=== PATIENT | male | born 1970 | race Caucasian/White ===

== ENCOUNTER 2019-11-15 14:04 | Emergency (ER) | payer MEDICARE, MEDICAID ==
--- NOTE | 2019-11-15 15:03 | UC ---
Back Pain HPI - HPI Summary HPI Summary: Patient's a 49-year-old gentleman who presents urgent care complaining of right low back pain for the last 24 hours. Patient has not taken anything for pain pain. Pain is worse with moves. Patient denies any numbness tingling or extremity weakness. Patient denies any trauma. No rash. No fevers no chills. No dysuria, no hematuria, no penile discharge. No testicular pain. Patient has not taken any analgesic. 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 Patient states he was treated for typing and then sent to [place]. Patient's concerned that his current symptoms are related to a UTI or kidney infection. Patient states he takes medications for blood pressure and [id number]-kng-scpsarg vitamins. Patient's medications is entered in the EMR by triage nurse reviewed by me. - History of Current Complaint Chief Complaint: UCBackPain Stated Complaint: BACK PAIN Time Seen by Provider: 11/15/19 14:54 Hx Obtained From: Patient, Other: - Donna Rothman | Reference #: [id number] istop Severity Initially: Moderate Severity Currently: Moderate Pain Intensity: 4 - Allergies/Home Medications Allergies/Adverse Reactions: Allergies Allergy/AdvReac Type Severity Reaction Status Date / Time No Known Allergies Allergy Verified 11/15/19 14:49 Home Medications: Home Medications Aspirin 1 dose PO DAILY 11/15/19 [History Confirmed 11/15/19] Multivitamin [Multivitamins] 1 tab PO DAILY 11/15/19 [History Confirmed 11/15/19 ] Valsartan 1 tab PO DAILY 11/15/19 [History Confirmed 11/15/19] Vitamin For Bones 1 tab PO DAILY 11/15/19 [History Confirmed 11/15/19] PMH/Surg Hx/FS Hx/Imm Hx Previously Healthy: Yes Cardiovascular History: Hypertension - Surgical History Surgical History: Yes Surgery Procedure, Year, and Place: bilateral hip replacement, renal abscess - Family History Known Family History: Positive: Non-Contributory - Social History Occupation: Unemployed Lives: With Family Alcohol Use: Occasionally Substance Use Type: None Smoking Status (MU): Never Smoked Tobacco Review of Systems All Other Systems Reviewed And Are Negative: Yes Constitutional: Positive: Negative. Negative: Fever, Fatigue Skin: Positive: Negative Genitourinary: Negative: Dysuria, Hematuria, Frequency, Urgency Motor: Positive: Negative Musculoskeletal: Positive: Other: - right back pain Physical Exam - Summary Physical Exam Summary: Vital Signs Reviewed: Yes A+Ox3, no distress Eyes: Conjunctiva Clear, CLAIR. ENT: Hearing grossly normal TM x 2 clear, mmoist, uvula midline, no exudate, no erythema Neck: Positive: Supple Respiratory: Positive: No respiratory distress, No accessory muscle use + CTA throughout no w/r Cardiovascular: RRR nl s1, s2 no m/r CBT <2 sec abd soft + BS nt/nd no guarding, no distension, no CVA, no rash Musculoskeletal Exam: No pain spinous process c/t/l/s Full AROM + mild paraspinal pain right lower thoracic Neurological: Positive: Alert, + sensation throughout Psychological: Positive: Normal Response To examiner Skin: Positive: no rash, no ecchymosis Triage Information Reviewed: Yes Vital Signs: Initial Vital Signs Temp 98.7 F 11/15/19 14:31 Pulse 67 11/15/19 14:31 Resp 18 11/15/19 14:31 BP 152/97 11/15/19 14:31 Pulse Ox 100 11/15/19 14:31 Diagnostics - Radiology No standard instances Radiology Interpretation Completed By: Radiologist - Patient Name: KIM MTZ Medical Record#: [id number] Ordering Physician: Donna Rothman MD Acct.#: [id number] : 1970 Age: 49 Sex: M Location: [facility] [place] Exam Date: 11/15/19 1534 ADM Status: [facility] ER Order Information: RENAL COMPLETE Accession Number: [id number] CPT : 44176 INDICATION: Right back pain history of renal abscess. COMPARISON: There are no prior studies available for comparison. TECHNIQUE: Multiple real-time images of the kidneys were obtained. FINDINGS: The kidneys are normal in size shape and echogenicity. The right kidney measured 10.2 x 5.3 x 6.3 cm and the left kidney measured 11.0 x 6.0 x 4.8 cm. No significant focal abnormality or hydronephrosis is seen. Note is made of a slightly complex cyst present in the posterior aspect of the right hepatic lobe measuring 1.9 x 1.3 x 1.8 cm. IMPRESSION: 1. NO EVIDENCE FOR HYDRONEPHROSIS OR FOCAL RENAL ABNORMALITY. 2. SLIGHTLY COMPLEX HEPATIC CYST. RECOMMEND A FOLLOW-UP HEPATIC ULTRASOUND IN 6 MONTHS TIME. < Electronically signed by León Bishop MD in OV> 11/15/19 1604 Dictated By: León Bishop MD Dictated Date/Time: 11/15/19 1601 Transcribed Date/Time: 160 Copy to: CC:Archie Laguna MD; Donna Rothman MD Imaging - [facility] Imaging - [place] [facility] [address] [place] [id number] [address] [address] ph ([phone]) ph ([phone]) ph ([phone]) This report is only to be considered final once signed by the Provider(s) as displayed in the "<Electronically Signed by >" field (s). Absence of a signature indicates the report is in a draft status and still needs to be finalized. In the event this document was created by someone other than the signing Provider, the individual initiating the document will be listed in the "Entered by:" or "Dictated by:" [email or web address]. 1 of 1 Re-Evaluation - Re-Evaluation First Eval Re-Evaluation Time: 16:13 Change: Improved - reviewed imaging study with pt will follow-up with PCP regarding hepatic cyst states APAP "helped a lot" will discharge - return precautions discussed Back Pain Course/Dx - Course Course Of Treatment: Patient presents urgent care with 5 hours of right back pain. Patient has not taken any for pain. Patient denies any injury. Patient without any other symptoms. No analgesic taken. Patient has a history of renal abscess that he was concerned enough that he came. Patient has no urinary symptoms. On exam vital signs are stable. Patient well-appearing. Patient does have mild pain on the right paraspinal distal thoracic area. We'll check a urine and ultrasound. Tylenol. We'll reassess. Patient comfortable with plan. BP elevated - history of diagnosis - related to today's visit - Differential Dx/Diagnosis Provider Diagnosis: Back pain Discharge ED - Sign-Out/Discharge Documenting (check all that apply): Patient Departure All imaging exams completed and their final reports reviewed: Yes - Discharge Plan Condition: Stable Disposition: HOME Patient Education Materials: Back Pain (ED) Referrals: Archie Laguna MD [Primary Care Provider] - Additional Instructions: - Okay to alternate ibuprofen (Advil, Motrin) and acetaminophen (Tylenol) every 3 hours for pain. Take with food. Do NOT take for more than 4-5 days - Apply warm heat to your back - once your muscles are warm, slow gentle stretching exercises are important - As discussed, your urine and your kidney ultrasound are non concerning. Your ultrasound does show a cyst on your liver. There are no previous imaging studies at this facility to compare today - it is recommended you discuss with your primary care provider and likely get re-imaged in 4-6 months If you develop increased pain, weakness or tingling in your legs, fever, vomiting or any other concerns it is recommended you go to the emergency department or contract your doctor for further evaluation and treatment - Billing Disposition and Condition Condition: STABLE Disposition: Home
[2019-11-15] MEDS ORDERED: Acetaminophen TAB* 325 MG PO ONE (15:22)
== END 2019-11-15 16:26 | disposition home or self-care (01) ==
LOC: UCEAST 14:04
DX: M54.6 Pain in thoracic spine (principal); I10 Essential (primary) hypertension; K76.89 Other specified diseases of liver
CPT/HCPCS: 76775; 81003; 99201; A9270-GY; G0463

== ENCOUNTER 2019-12-22 20:33 | Emergency (ER) | payer MEDICARE, MEDICAID ==
--- OUTSIDE RECORDS SUMMARY | 2019-12-22 20:40 | XMS REPORT | Continuity of Care Document ---
:1970 Author Organization 0001 - [facility] Address [address] [place] [address] Phone Care Team Providers Name Role Phone KIRT TELLO MD Unavailable Unavailable Allergies, Adverse Reactions, Alerts Substance Reaction Status TRAMADOL HCL Itching (mild to moderate) Active Medications Medication Instructions Dosage Effective Status Comments Dates (start - stop) cromolyn 4 % eye instill 1 - 2 drop 1-2 drop - Active drops by Ophthalmic route 4 times every day into affected eye(s) aspirin 81 mg take 1 tablet by 81 MG - Active tablet,delayed ORAL route every release day Diovan 160 mg take 1 tablet by 160 MG - Active Replacing tablet oral route every lisnopril day ciclopirox 0.77 % apply by topical 0.00 - Active topical cream route 2 times every day to the affected and surrounding areas of skin in the morning and evening Voltaren 1 % apply 4 Grams by 4 Grams - Active topical gel Topical route every 6 hours ibuprofen 400 mg take 1 by Oral 1 - Active tablet route every 4 hours as needed for pain nitroglycerin 0.4 place 1 tablet by 0.4 MG - Active mg sublingual sublingual route tablet once at 1st sign of attack; may repeat every 5 minutes up to 3 tabs; if norelief seek medical help loratadine 10 mg take 1 tablet by 10 MG - Active tablet oral route every day Multivitamin 50 take 1 tablet by - Active Plus tablet oral route every day Move Free Joint - Active Health 750 mg-100 mg-1.65 mg-108 mg tablet cromolyn 4 % eye instill 1 - 2 drop 1-2 drop - No Longer drops by Ophthalmic Active route 4 times every day into affected eye(s) Problems Condition Effective Dates (start - stop) Clinical Status Essential (primary) hypertension Elevated liver enzymes Chronic right shoulder pain Other chronic pain History of hepatitis History of fatty infiltration of liver Tinea pedis of right foot Other disturbances of skin sensation - Fasciculation - Fasciculation Dysesthesia Nose pain Viral URI Viral respiratory infection Other viral agents as the cause of diseases classified elsewhere Status post total replacement of both hips Tinea pedis of right foot Digital mucinous cyst of finger of right hand Chronic left shoulder pain Other chronic pain Digital mucinous cyst of finger of right hand 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 Chronic left shoulder pain Other chronic pain Neck pain Lesion of mandible Urinary frequency Urinary frequency Angular cheilitis Flu syndrome Cntct w and expsr to environ tobacco - smoke (acute) (chronic) Acute right ankle pain Acute non-recurrent sinusitis, unspecified location Cntct w and expsr to environ tobacco - smoke (acute) (chronic) Acute non-recurrent sinusitis, unspecified location Cntct w and expsr to environ tobacco - smoke (acute) (chronic) Encounter for screening for other - disorder Allergic conjunctivitis of both eyes Chronic left shoulder pain Other chronic pain Essential (primary) hypertension Chest pain, unspecified Cntct w and expsr to environ tobacco - smoke (acute) (chronic) Essential (primary) hypertension Precordial pain Cntct w and expsr to environ tobacco - smoke (acute) (chronic) Laceration of oral cavity, subsequent encounter Essential (primary) hypertension Cntct w and expsr to environ tobacco - smoke (acute) (chronic) Abrasion of right eye, initial encounter Viral respiratory infection Other viral agents as the cause of diseases classified elsewhere Urinary frequency Acromioclavicular joint arthritis Pain in joint of left shoulder Essential (primary) hypertension Viral URI Other viral agents as the cause of diseases classified elsewhere Viral URI Other viral agents as the cause of diseases classified elsewhere Abrasion of gum, initial encounter History of hepatitis C History of hepatitis C Family history of hemophilia Nonspec elev of levels of transamns & - lactic acid dehydrgnse Genetic counseling Elevated transaminase level Flu syndrome Other fatigue Right hip pain Stress due to family tension Essential (primary) hypertension Encounter for immunization - Acute sinusitis, unspecified Essential (primary) hypertension Essential (primary) hypertension Pain in unspecified ankle and joints of unspecified foot Essential (primary) hypertension Other abnormal glucose Hypertension, Benign - Abnormal Liver Enzymes - ABNORMAL GLUCOSE NEC - Impaired vision Hypertension, Benign Elevated blood sugar Elevated ALT level Hyperglycemia, unspecified Nonspecific elevation of levels of transaminase and lactic acid dehydrogenase [LDH] Essential (primary) hypertension Unspecified visual loss Hypertension, Benign Elevated Blood Sugar Foot Pain Foot Pain Hypertension, Benign Hip pain, left Hypertension, Benign Heel pain Elevated blood pressure Impaired vision Vaccine against viral hepatitis - Epicondylitis Impaired vision Family history of glaucoma History of hepatitis Hepatitis C, chronic viral, w/o hepatic coma Priapism Osteoarthritis Status post hip prosthesis Dysuria Status post right hip replacement Abrasion of right thigh Acute upper respiratory infection Osteoarthrosis, local, prim, pelvis/thigh Acute sinusitis Bronchitis with airway obstruction Elevated blood pressure Osteoarthrosis, local, prim, lower leg Systemic viral illness Osteoarthrosis, local, prim, lower leg Osteoarthrosis, local, prim, pelvis/thigh Osteoarthritis of both hips Osteoarthrosis NOS, pelvis/thigh Osteoarthrosis, local, prim, lower leg Pain in joint, shoulder Osteoarthrosis, local, prim, pelvis/thigh Osteoarthrosis, local, prim, lower leg Osteoarthrosis, local, prim, - pelvis/thigh Osteoarthrosis, local, prim, lower leg - Osteoarthrosis, local, prim, - pelvis/thigh Osteoarthrosis, local, prim, lower leg - Osteoarthritis of both hips Knee pain Osteoarthrosis NOS, pelvis/thigh - Pain in joint, lower leg - Osteoarthrosis NOS, pelvis/thigh - Pain in joint, lower leg - Contact dermatitis Osteoarthritis Dermatitis NOS - Osteoarthrosis NOS, unspecified site - Upper Respiratory Infection, Acute - Upper Respiratory Infection, Acute - Elevated blood pressure Pain in joint, pelvis/thigh - Pain in joint, lower leg - Abnormal findings, elevated BP w/o HTN - Shoulder pain Pain in joint, pelvis/thigh - Pain in joint, shoulder - Pain in joint, pelvis/thigh - Pain in joint, shoulder - Sinusitis, Acute - Sinusitis, Acute - Arthritis Arthropathy - Arthropathy - Impetigo Elevated blood pressure Impetigo - Abnormal findings, elevated BP w/o HTN - Impetigo - Abnormal findings, elevated BP w/o HTN - Reaction, adjustment NOS Upper Respiratory Infection, Acute Reaction, adjustment NOS - Upper Respiratory Infection, Acute - Reaction, adjustment NOS - Upper Respiratory Infection, Acute - Low back pain Pain in joint, multiple sites Lumbago - Pain in joint, multiple sites - Lumbago - Pain in joint, multiple sites - Chronic knee pain Knee pain, right Multiple joint pain Generalized Pain - Pain in joint, lower leg - Pain in joint, multiple sites - Pain in joint, lower leg - Pain in joint, multiple sites - Pharyngitis, Acute Rhinitis, allergic NOS Excessive cerumen in ear canal Pharyngitis, Acute - Rhinitis, allergic NOS - Impacted cerumen - Pharyngitis, Acute - Rhinitis, allergic NOS - Impacted cerumen - Upper Respiratory Infection, Acute - Multiple joint pain Hip pain Pain in joint, multiple sites - Pain in joint, pelvis/thigh - Low back strain Pain in joint, shoulder Lumbar Sprain Or Strain - Pain in joint, shoulder - Shoulder pain Pain in joint, shoulder - Pain in joint, shoulder - Shoulder pain Shoulder pain, left Pain in joint, shoulder - Pain in joint, shoulder - Left shoulder strain Mixed Hyperlipidemia Sprain/strain, shoulder/arm NOS - Mixed Hyperlipidemia - Sprain/strain, shoulder/arm NOS - Mixed Hyperlipidemia - Sinusitis, Acute Hypertension, Benign Fatigue / Malaise Upper Respiratory Infection, Acute Sprain/strain, hip/thigh NEC Sinusitis, Acute Hepatitis C, chronic viral, w/o hepatic coma Upper Respiratory Infection, Acute Acute Upper Respiratory Infection, Acute Acute Cyst, sebaceous Acute Foreign body, ear Acute Osteoarthrosis, local, prim, - Chronic pelvis/thigh Osteoarthrosis, local, prim, lower leg - Chronic Pain in joint, pelvis/thigh Chronic Pain in joint, lower leg Chronic Hip pain, bilateral Chronic Sinusitis, Acute Chronic Reaction, prolonged depressive Chronic Retardation, mental, mild Chronic Legal circumstances Chronic Sinusitis, acute NOS Improved Osteoarthrosis, local, prim, Worse pelvis/thigh Osteoarthritis of both hips Worse Procedures Procedure Date Procedure Unknown Results Test Name Date and Time Measure Units Reference Range Abnormal Flag Status Comments Unknown Encounters Encounter Practice Location Reason(s) Diagnoses Date Provider Providers Description For Visit Copied on Encounter 2019 - [facility] Primary [employer] [facility] KIRT. [address] [place] [address], [address], [facility], tel: [phone] tel: [phone] 2019 - [facility] Primary [employer] [facility] KIRT. [address] [place] [address], [place], [address], [facility], tel: [phone] tel: [phone] 2019 - [facility] Primary Sep- The Online [facility] KIRT. [place] 9 [facility] [place] [address] [place] [address], [place], [place], [address], [place], tel:+ [phone] tel:[phone] 0001 - [facility] Essential (primary) [employer], [facility] hypertensionElevate KIRT. [place] d liver 9 [facility] Charly enzymesChronic [address] [facility], right shoulder [facility] painOther chronic [place], pain [place], [address], [place], tel:+ [phone] tel: [phone] 0001 - [facility] Primary [employer], [facility] KIRT. [place] 9 [facility] Charly [address] [facility], [place], [place], [address], [place], tel: [phone] tel: [phone] 0001 - [facility] History of [employer], [facility] hepatitisHistory of KIRT. [place] fatty infiltration 9 [facility] Charly of liverTinea pedis [address] [place] [address], of right foot [place], [place], [address], [place], tel: [phone] tel:+ [phone] 0001 - [facility] Primary May- [employer], [facility] KIRT. [place] 9 [facility] [address] [place] [address], [place], [place], [address], [place], tel: [phone] tel:[phone] 0001 - [facility] Primary Other disturbances May- [employer], [facility] of skin KIRT. [place] sensationFasciculat 9 [facility] Charly ion [address] [facility], [place], [place], [address], [place], tel:+ [phone] tel:[phone] 0001 - [facility] Primary FasciculationDysest May- [employer], [facility] hesia KIRT. [place] 9 S PC Charly [address] [place] [address], [place], [place], [address], [place], tel:+ [phone] tel: [phone] 0001 - S Primary Fe- [facility], [facility] KIRT. [place] 9 S PC Charly [address] [place] [address], [place], [place], [address], [place], tel: [phone] tel: [phone] 0001 - S Primary Nose painViral URI [facility], [facility] KIRT. [place] 9 S PC Charly [address] [place] [address], [place], [place], [address], [place], tel: [phone] tel: [phone] 0001 - S Primary Viral respiratory [facility], [facility] infectionOther KIRT. [place] viral agents as the 9 [facility] Charly cause of diseases [address] [place] [address], [facility] [place], post total [place], [address], [place] replacement of both [place], tel: hips [phone] tel: [phone] 0001 - S Primary Tinea pedis of [facility], [facility] right foot KIRT. [place] 8 S PC Charly [address] [place] [address], [place], [place], [address], [place], tel: [phone] tel: [phone] 0001 - S Primary Digital mucinous Jun- [facility], [facility] cyst of finger of KIRT. [place] right hand 8 [facility] [address] [place] [address], [place], [place], [address], [place], tel: [phone] tel: [phone] 0001 - [facility] Primary Chronic left Aug-0 SKIFF [facility], [facility] shoulder painOther 2- KIRT. [address] [place] chronic painDigital 8 [facility] mucinous cyst of [address] [place] [address], finger of right , [place], [place], [place], [address], [place], tel: [phone] tel: [phone] 0001 - [facility] Primary Borderline May-2 [employer] [facility], [facility] intellectual 6- KIRT. [address] [place] functioning 8 [facility] Charly [address] [facility], [place], [place], [address], [place], tel:[phone] tel: [phone] 0001 - [facility] Primary Borderline May-2 [employer], [facility] intellectual 3- KIRT. [address] [place] functioning 8 [facility] [address] [place] [address], [place], [place], [address], [place], tel: [phone] tel: [phone] 0001 - [facility] Primary Chronic left March-3 [employer] [facility], [facility] shoulder painOther 1- KIRT. [address] [place] chronic painNeck 8 [facility] pain [address] [place] [address], , [place], [place], [place], [address], [place], tel: [phone] tel: [phone] 0001 - [facility] Primary Lesion of Mar-0 [employer], [facility] mandibleUrinary 6 KIRT. [address] [place] frequency 8 [facility] [address] [place] [address], [place], [place], [address], [place], tel: [phone] tel:[phone] 0001 - [facility] Primary Urinary frequency Feb-2 LUIS. [facility], [facility] 7- [facility]HSP[facility] [address] [place] [address], [facility], [facility] [place], [address]. [address], [place] tel:60 tel:[phone] 0001 - [facility] Primary Angular cheilitis Dec- [employer]IFF [facility], Care [facility]nett KIRT. [address] [place] 8 [facility] [address] [place] [address], [place], [place], [address], [place], tel: [phone] tel: [phone] 0001 - [facility] Primary Flu syndromeCntct w Feb- SKIFF [facility], Care [facility] and expsr to KIRT. [address] [place] [address] environ tobacco 8 [facility] smoke (acute) [address] [place] [address], (chronic) [place], [place], [place], [address], [place], tel: [phone] tel: [phone] 0001 - [facility] Primary Acute right ankle SKIFF [facility], [facility] painAcute [facility]. [address] [place] [address] non-recurrent 8 [facility] sinusitis, [address] [place] [address], unspecified [facility] locationCntct w and [place], expsr to environ [place], [facility], [place] tobacco smoke [place], tel: (acute) (chronic) [phone] tel: [phone] 0001 - [facility] Acute non-recurrent Nov- [facility], [facility] sinusitis, KIRT. [address] [place] [address] unspecified 8 [facility] Charly locationCntct w and [address] [place] [address], expsr to environ [facility] tobacco smoke [place], (acute) [place], [facility], [place] (chronic)Encounter [place], tel: [place] for [phone]. [phone] other disorder tel: [phone] 0001 - [facility] Primary Allergic Jul- SKIFF [employer], [facility] conjunctivitis of [place] [id number] [place] [address] both eyesChronic 7 [facility] Ch[facility] left shoulder [address] [place] [address], painOther chronic [facility] pain [place], [place], [address], [place], tel: [phone] tel: [phone] 0001 - [facility] Essential (primary) Sep-1 ULISSES [facility], Cardiology hypertensionChest 2-201 DODIE. 30 [address]57 pain, 7 Charly Parks unspecifiedCntct w Street, Street, and expsr to [facility] environ [address], smoke (acute) [place] [address], [place] (chronic) [place], [place], tel: [phone] tel: [phone] 0001 - [facility] Primary Essential (primary) Aug-2 SKIFF [facility], [facility] hypertensionPrecord 5- KIRT. [place] ial painCntct w and 7 [facility]arly expsr to environ [address] [place] [address], tobacco smoke [facility] (acute) (chronic) [place], [place], [address], [place], tel: [phone] tel: [phone] 0001 - [facility] Primary Laceration of oral Jun-0 SKIFF [facility], [facility] cavity, subsequent KIRT. Goran encounterEssential 7 UHMercedes Parks (primary) [address] [facility], hypertensionCntct w [facility] and expsr to [place], environ tobacco [place], [address], [place] smoke (acute) [place], tel: (chronic) [phone] tel: [phone] 0001 - [facility] Primary Abrasion of right Feb-2 SKIFF [facility], [facility] eye, initial KIRT. Goran encounter 7 [facility] JALYN Parks [address] [facility], [place], [place], [place], [address], [place], tel: [phone] tel: [phone] 0001 - S Primary Viral respiratory Feb-0 SKIFF [facility], [facility] infectionOther KIRT. Goran viral agents as the 7 [facility] JALYN Parks cause of diseases [address] [facility], classified [facility] elsewhere [place], [place], [place], [address], [place], tel: [phone] tel: [phone] 0001 - S Primary Urinary Suresh-2 SKIFF [facility], [facility] frequencyAcromiocla 0-201 KIRT. [address] [place] vicular joint 7 [facility] JALYN Parks arthritisPain in [address] [facility], joint of left [facility] shoulder [place], [place], [place], [address], [place], tel:+ [phone] tel:+ [phone] 0001 - S Primary Essential (primary) Dec-2 SKIFF [facility], [facility] hypertension 1-201 KIRT. [address] [place] 6 [facility] [address] [place] [address], [place], [place], [address], [place], tel: [phone] tel: [phone] 0001 - S Primary Viral URIOther Nov-1 SKIFF [employer], [facility] viral agents as the 0-201 KIRT. [place] cause of diseases 6 S JALYN Parks classified [address] [place] [address], elsewhere [place], [place], [address], [place], tel: [phone] tel: [phone] 0001 - S Primary Viral URIOther Sep-2 [facility], [facility] viral agents as the 0-201 KIRT. [place] cause of diseases 6 [facility] JALYN Parks classified [address] [place] [address], elsewhere [place], [place], [address], [place], tel: [phone] tel: [phone] 0001 - S Primary Abrasion of gum, Sep-0 [employer], [facility] initial 1- KIRT. [address] [place] encounterHistory of 6 [facility] JALYN Parks hepatitis C [address] [place] [address], [place], [place], [address], [place], tel: [phone] tel:[phone] 0001 - S Primary History of Aug-2 [facility], [facility] hepatitis C 5-201 KIRT. [address] [place] 6 [facility] JALYN Parks [address] [facility], [place], [place], [address], [place], tel: [phone] tel:+ [phone] 0001 - [facility] Primary Family history of Apr- [employer], [facility] hemophilia 0- KIRT. [address] [place] 6 [facility] [address] [place] [address], [place], [address], [place], tel:+ [phone] tel: [phone] 0001 - [facility] Primary Nonspec elev of Arron-0 SKIFF [employer], [facility] levels of transamns 9- KIRT. [address] [place] & lactic acid 6 [facility] Charly dehydrgnse [address] [place] [address], [place], [address], [place], tel: [phone] tel: [phone] 0001 - S Primary Genetic March-3 SKIFF [employer], [facility] counselingElevated KIRT. [address] [place] transaminase level 6 [facility] [address] [place] [address], [place], [address], [place], tel: [phone] tel: [phone] 0001 - [facility] Primary Flu syndromeOther March- [employer], [facility] fatigue KIRT. [address] [place] 6 [facility] [address] [place] [address], [place], [address], [place], tel: [phone] tel: [phone] 0001 - S Primary Right hip [employer], [facility] painStress due to KIRT. [address] [place] family 6 [facility] Ch[facility] tensionEssential [address] [place] [address], (primary) [facility] hypertensionEncAmerican Falls, [place], er for immunization [place], [address], [facility], tel: [phone] tel:[phone] 0001 - S Primary Acute sinusitis, SKIFF [facility], [facility] unspecifiedEssentia - KIRT. [address] [place] l (primary) 6 [facility] Ch[facility] hypertension [address] [place] [address], [place], [place], [address], [place], tel: [phone] tel: [phone] 0001 - [facility] Primary Essential (primary) Sep- [employer], [facility] hypertensionPain in KIRT. [address] [place] unspecified ankle 5 [facility] Charly and joints of [address] [place] [address], unspecified foot [place], [place], [place], [address], [place], tel: [phone]. [phone] tel: [phone] 0001 - [facility] Primary Essential (primary) Oct-0 [employer], [facility] hypertensionOther KIRT. [place] abnormal glucose 5 [facility]arly [address] [place] [address], [place], [address], [place], tel: [phone] tel: [phone] 0001 - [facility] Primary Hypertension, Sep-2 LORD LUIS. [employer], [facility] BenignAbnormal [facility] 57 [place] Liver 5 [facility], [place]anks EnzymesABNORMAL [facility], [place], [address]. [address], [place] tel: tel: [phone] 0001 - [facility] Primary Impaired Sep-2 [employer], [facility] visionHypertension, KIRT. [address] [place] BenignElevated 5 [facility] Charly blood sugarElevated [address] [place] [address], ALT [facility] levelHyperglycemia, [place], unspecifiedNonspeci [place], [address], [place] fic elevation [place], [place] [phone]. [phone] transaminase and tel:+ lactic acid [phone] dehydrogenase [LDH]Essential (primary) hypertensionUnspeci fied visual loss 0001 - [facility] Primary Hypertension, Sep-1 [employer], [facility] BenignElevated KIRT. [address] [place] Blood Sugar 5 [facility] [address] [place] [address], [place], [place], [place], [address], [place], tel:+ [phone] tel: [phone] 0001 - [facility] Foot Pain Sep-1 STEVEN [facility], Podiatry 0-201 [place]. [place] 5 [address] [facility], [place], [place], [address], [place] [address]. tel: tel: [phone] 0001 - [facility] Primary Foot Aug- SKIFF [facility], [facility] PainHypertension, KIRT. [place] Benign 5 [facility] [address], [place], [address], [place], tel: [phone]. [phone] tel: [phone] 0001 - [facility] Primary Hip pain, left May- SKIFF [facility], [facility] KIRT. [place] 5 [facility] Ch[place] [address] [place] [address], [place], [address], [place], tel: [phone] tel: [phone] 0001 - [facility] Primary Hypertension, May-0 SKIFF [facility], [facility] BenignHeel pain KIRT. [place] 5 [facility] Ch[facility] [address] [place] [address], [place], [address], [place], tel: [phone] tel: [phone] 0001 - [facility] Primary Elevated blood Arron- SKIFF [facility], [facility] pressureImpaired KIRT. [place] visionVaccine 5 [facility] Shanks against viral [address] [facility], hepatitis [place], [place], [place], [address], [place], tel: [phone]. [phone] tel:+ [phone] 0001 - [facility] Primary Epicondylitis March- SKIFF [facility], Care [facility] KIRT. [place] 5 [facility] Ch[place] [address] [place] [address], [place], [place], [place], [address], [place], tel:+ [phone] tel: [phone] 2019 - [facility] Primary Impaired March- [facility], [facility] visionFamily KIRT. [place] history of glaucoma 5 [facility] Charly [address] [place] [address], [place], [address], [place], tel: [phone]. [phone] tel: [phone] 2019 - [facility] Primary History of [facility], [facility] hepatitisHepatitis KIRT. Goran C, chronic viral, 5 [facility] Charly w/o hepatic coma [address] [place] [address], [place], [address], [facility], tel: [phone]. [phone] tel: [phone] 2019 - [facility] Primary PriapismOsteoarthri [facility], [facility] tisStatus post hip KIRT. [place] prosthesis 4 [facility] Charly [address] [place] [address], [place], [address], [place], tel: [phone]. [phone] tel: [phone] 2019 - [facility] Primary Dysuria Mar-2 Gil SHAIKH Referring [facility], [facility] NURSE. . Provider: [place] 4 [place], [address], tel: [phone] 2019 - [facility] Primary Status post right Mar- [facility], [facility] hip KIRT. [place] replacementAbrasion 4 S Charly of right thigh [address] [place] [address], [place], [address], [facility], tel: [phone]. [phone] tel: [phone] 2019 - [facility] Primary Acute upper Feb- [facility] Referring S Inc, [facility] respiratory KIRT. Provider: Goran infectionOsteoarthr 4 S PC KIRT Parks osis, local, prim, [address] SKIFF, [facility] [address], pelvis/thigh St, PC [address] [facility], [place], [place], [place], [place] [address], [place] [facility], tel: [address]. [place], [address]. [id number] tel: tel: [phone] 0001 - [facility] Primary Osteoarthrosis, Suresh- SKIFF Referring [facility], [facility], prim, 0-201 KIRT. Provider: 33-57 Goran pelvis/thigh 4 [facility] PC KIRT [place] [address] [facility] SKIFF, [facility] Street, St, PC [address] [facility] [address], [place], [place], [place], [place] [address], [place] [facility], tel: [address]. [place], [address]. [id number] tel: tel: [phone] 0001 - [facility] Primary Acute Nov SKIFF Referring [facility], [facility] sinusitisBronchitis 9-201 KIRT. Provider: 33-57 Goran with airway 3 [facility] PC KIRT Parks obstructionElevated 119 [facility], [facility] Street, blood St, PC 119 [place] pressureOsteoarthro [facility], [place], [place], sis, local, prim, [place], [place] [address], [place] lower leg [facility], tel: [address]. [place], [address]. [id number] tel: tel: [phone] 0001 - [facility] Primary Systemic viral SKIFF Referring [facility], [facility] illnessOsteoarthros 0-201 KIRT. Provider: 33-57 Goran is, local, prim, 3 [facility] PC KIRT Parks lower 119 [facility], [facility] Street, legOsteoarthrosis, St, PC 119 [place] local, prim, [facility], [place], [place], pelvis/thigh [facility] [address], [place] [facility], tel: [address]. [place], [address]. [id number] tel: tel: [phone] 0001 - [facility] Primary Osteoarthritis of Sep- SKIFF Referring [facility], [facility] both hips 8-201 KIRT. Provider: 33-57 [place] 3 S PC KIRT Parks [address] [place] [address], St, [address], [place], [place], [place], [place] [address], [place], [place], tel: [address]. [place], [address]. [id number] tel: tel: [phone] 0001 - S Primary Osteoarthrosis NOS, [facility] Referring [facility], [facility] pelvis/thighOsteoar KIRT. Provider: 3357 [place] throsis, local, 3 S PC KIRT Parks prim, lower legPain [address] [place] [address], in joint, shoulder St, [address], [place], [place], [place], [place] [address], [place], [place], tel: [address]. [place], [address]. [id number] tel: tel: [phone] 0001 - S Primary Osteoarthritis of [facility], [facility] both hips KIRT. 33 [place] 3 S PC Charly [address] [place] [address], [place], [place], [place], [address], [place], tel: [phone]. [phone] tel: [phone] 0001 - S Primary Osteoarthrosis, [facility], [facility] local, prim, KIRT. 33 [place] pelvis/thighOsteoar 3 S PC Charly throsis, local, [address] [place] [address], prim, lower [facility] legOsteoarthrosis, [place], [place], local, prim, [place], [address], [place] pelvis/thighOsteoar [place], tel: throsis, local, [phone]. [id number] prim, lower tel:+ legOsteoarthrosis, [id number] local, prim, pelvis/thighOsteoar throsis, local, prim, lower legOsteoarthrosis, local, prim, pelvis/thighOsteoar throsis, local, prim, lower leg 0001 - S Primary Osteoarthritis of [facility], [facility] both hipsKnee KIRT. 33 [place] painOsteoarthrosis 3 [facility] PC Charly NOS, [address], pelvis/thighPain in St, Stephan joint, lower [place], [place], legOsteoarthrosis [place], [address], [place] N[place], [place], tel:+ [place] [phone]. [id number] joint, lower leg tel: [phone] 0001 - S Primary Contact Mar-2 SKIFF Referring S Inc, [facility] dermatitisOsteoarth KIRT. Provider: 33 [place] ritisDermatitis 3 [facility] KIRT Parks NOSOsteoarthrosis [address] [facility] SKIFF, [facility] Street, NOS, unspecified St, PC 119 Stephan site [facility], [place], [place], [place], [place] [address], [place], [place], tel: [address]. [place], [address]. [id number] tel: tel: [phone] 0001 - [facility] Primary Upper Respiratory Jan- SKIFF Referring S Inc, [facility] Infection, KIRT. Provider: 33 [place] AcuteUpper 3 [facility] PC KIRT Parks Respiratory [address] [facility] SKIFF, [facility] Street, Infection, St, PC 119 Stephan AcuteUpper [place], [place], Respiratory [place], [place] [address], [place] Infection, Acute [place], [place], tel: [address]. [place], [address]. [id number] tel: tel: [phone] 0001 - [facility] Primary Pain in joint, Mar- SKIFF Referring S Inc, [facility] pelvis/thighPain in KIRT. Provider: 33- [place] joint, lower 3 [facility] PC KIRT Parks legElevated blood 119 [facility], [facility] Street, pressurePain in St, PC 119 Stephan joint, [facility], [place], [place], pelvis/thighPain in [place], [place] [address], [place] joint, lower [place], [place], tel:+ [place] [address]. [place], [address]. [id number] findings, elevated tel: tel:607 BP w/o HTN [phone] 0001 - [facility] Primary Hip pain, Dec- [facility] Referring S [facility], Care [place] bilateralShoulder KIRT. Provider: 33 Goran painPain in joint, 3 S PC KIRT Parks pelvis/thighPain in [address] [place] [address], [facility] Street, joint, shoulderPain St, Evangelina Rothman in joint, [place], [place], pelvis/thighPain in [facility] [address], [place] joint, shoulder [place], [place], tel: [address]. [place], [address]. [id number] tel: tel: [phone] 0001 - [facility] Primary Sinusitis, [facility], [facility] AcuteSinusitis, KIRT. [place] AcuteSinusitis, 3 S Charly Acute [address] [place] [address], [place], [place], [place], [address], [place], tel: [phone]. [phone] tel: [phone] 0001 - [facility] Primary ArthritisArthropath Oct- [facility], [facility] yArthropathy KIRT. [place] 2 S Charly [address] [place] [address], [place], [address], [place], tel: [phone]. [phone] tel: [phone] 2019 - [facility] Primary ImpetigoElevated Aug- [facility] Referring [facility], [facility] blood KIRT. Provider: [place] pressureImpetigoAbn 2 [facility] PC KIRT Parks ormal findings, [address] [place] [address] Street, elevated BP w/o St, [address] HTNImpetigoAbnormal [place], [place], findings, elevated [facility] [address], [place] BP w/o HTN [place], [place], tel: [address]. [place], [address]. [id number] tel: tel: [phone] 2019 - [facility] Primary Reaction, Ar[place]-0 [facility] Referring S Inc, [facility] adjustment NOSUpper 1- KIRT. Provider: 33 [place] Respiratory 2 [facility] KIRT Parks Infection, [address] [place] [address], [facility] Street, AcuteReaction, St, [facility] Stephan adjustment NOSUpper [facility], [place], [place], Respiratory [place], [place] [address], [place] Infection, [place], [place], tel: Acute[place], [address]. [place], [address]. [id number] adjustment NOSUpper tel: tel:[phone] Respiratory [phone] [id number] Infection, Acute 0001 - S Primary Low back painPain May-2 [facility] Inc, [facility] in joint, multiple 4-201 KIRT. [place] sitesLumbagoPain in 2 [facility] Charly joint, multiple [address] [place] [address], sitesLumbagoPain in [facility] joint, [place], [place], sites [place], [address], [place], tel: [phone]. [phone] tel: [phone] 0001 - [facility] Chronic knee pain May-2 [facility] Inc, [facility] 2- KIRT. [place] 2 [facility] Charly [address] [place] [address], , [place], [place], [place], [address], [place], tel: [phone]. [phone] tel: [phone] 0001 - S Primary Knee pain, Apr-0 [facility] Inc, [facility] rightMultiple joint 3-201 KIRT. [place] painGeneralized 2 [facility] Charly PainPain in joint, [address] [place] [address], lower legPain in , [place] joint, multiple [place], [place], sitesPain in joint, [place], [address], [place] lower legPain in [place], tel: joint, [facility] [address]. [id number] sites tel: [phone] 0001 - [facility] Primary Pharyngitis, Nov-3 [facility] [employer], [facility] AcuteRhinitis, 0-201 KIRT. 33-57 [place] allergic 1 [facility] Charly NOSExcessive [address] [place] [address], cerumen in ear [facility] canalPharyngitis, [place], [place], AcuteRhinitis, [place], [address], [place] allergic [place], tel: NOSImpacted [phone]. [id number] cerumenPharyngitis, tel: AcuteRhinitis, [phone] allergic NOSImpacted cerumen 0001 - [facility] Primary Upper Respiratory Nov-0 SKIFF Referring S Inc, Care [place] Infection, KIRT. Provider: 33-57 Goran AcuteUpper 1 [facility] KIRT Parks Respiratory 119 [facility], [facility] Street, Infection, Acute St, PC [address] [facility], [place], [place], [place], [place] [address], [place] [facility], tel: [address]. [place], [address]. [id number] tel: tel: [phone] 0001 - [facility] Primary Multiple joint Sep- SKIFF Referring S Inc, [facility] painHip painPain in KIRT. Provider: 33-57 [place] joint, multiple 1 [facility] KIRT Parks sitesPain in joint, 119 [facility], [facility], pelvis/thigh St, 119 [place], [place], [facility] [address], [place] [facility], tel: [address]. [place], [address]. [id number] tel: tel: [phone] 0001 - [facility] Primary Low back strainPain Aug- SKIFF S Inc, Care [place] in joint, 0- KIRT. 33-57 [place] shoulderLumbar 1 [facility] PC Charly Sprain Or 119 [facility], StrainPain in , [place] joint, shoulder [place], [place], [place], [address], [place], tel: [phone]. [phone] tel: [phone] 0001 - [facility] Primary Shoulder painPain May- SKIFF Referring S Inc, Care [place] in joint, KIRT. Provider: 33-57 [place] shoulderPain in 1 [facility] PC KIRT [place] joint, shoulder 119 [facility], [facility] Street, St, [address] [facility], [place], [place], [place], [place] [address], [place] [facility], tel:[phone]. [place], [address]. [id number] tel: tel: [phone] 0001 - S Primary Shoulder pain May- SKIFF S Inc, Care [place] 6- KIRT. [place] 1 S PC Charly [address] [place] [address], [place], [address], [facility], tel: [phone]. [phone] tel: [phone] 0001 - S Primary Shoulder pain, SKIFF S Inc, [facility] leftPain in joint, 0- KIRT. [place] shoulderPain in 1 S Charly joint, shoulder [address] [place] [address], [place], [address], [facility], tel: [phone]. [phone] tel: [phone] 0001 - S Primary Left shoulder Arron- SKIFF S Inc, [facility] strainMixed 0 KIRT. [place] HyperlipidemiaSprai 1 [facility] Chalry n/strain, [address] [place] [address], shoulder/arm [facility] NOSMixed [place], [place], HyperlipidemiaSprai [place], [address], n/strain, [place], tel: shoulder/arm [phone]. [id number] NOSMixed tel: Hyperlipidemia [phone] 0001 - S Primary Sinusitis, SKIFF Referring S Inc, [facility] AcuteHypertension, KIRT. Provider: [place] BenignFatigue / 1 S PC KIRT Parks Malaise 119 [facility], PC [address] [place] [address], [facility] [address], [facility], [place], tel: [address]. [place], [address]. [id number] tel: tel: [phone] 0001 - S Primary Upper Respiratory Nov- SKIFF Referring S Inc, [facility] Infection, Acute KIRT. Provider: 33- [place] 0 S PC KIRT Parks [facility], 119 [place], [place], [facility] [address], [facility], [place], tel: [address]. [place], [address]. [id number] tel: tel: [phone] 0001 - S Primary Sprain/strain, Sep- [facility], [facility] hip/thigh NEC 3 [facility]. [place] [address], [place], [address], [place], tel: [phone]. [phone] tel: [phone] 0001 - S Primary Sinusitis, [facility], [facility] AcuteHepatitis C, [facility]. [place] chronic viral, w/o [address], [place], [address], [place], tel: [phone]. [phone] tel: [phone] 0001 - S Primary Sinusitis, acute [facility], [facility] NOSCyst, sebaceous 3 [facility]. [place] [address], [place], [address], [facility], tel: [phone]. [phone] tel: [phone] 0001 - S Primary Foreign body, ear LORD SMITH. Angely S Inc, [facility] 8-200 [facility] 119 Provider: [address], LUIS LLOYD [facility] 119 [place], [place], [address]. [place], [address], [place]: [place], [address]. tel: [phone] tel:[phone] 0001 - S Primary [facility], [facility] 5-200 [facility]. [place] [address], [place], [address], [place], tel: [phone]. [phone] tel: [phone] 0001 - [facility] Primary Reaction, prolonged Dec-2 SKIFF Referring [facility] depressiveRetardati 4-200 KIRT. Provider: 33-57 [place] on, [facility], 7 [facility] PC KIRT Parks mildLegal 119 [facility], [facility], [address] [facility] [address], [facility], tel: [phone] [address]. [id number] tel: tel: [phone] Family History Family Member Diagnosis Age At Onset Niece Niece Becka (Cause Of ) Niece Immunizations Vaccine Date Status Comments Hep A (adult) administered Source: New Immunization Record Hep B, adult, 3 dose administered Source: New Immunization Record Hep B, adult, 3 dose administered Source: New Immunization Record Hep B, adult, 3 dose administered Source: New Immunization Record Hep A (adult) administered Source: New Immunization Record Tdap administered Source: New Immunization Record Payers Payer name Insurance type Covered democrat ID Authorization(s) Medicare Mc [id number] Medicare Mc [id number] Medicaid [id number] Medicare A [id number] Medicare B [id number] Medicaid [facility] [id number] Medicare A [id number] Medicare B [id number] Medicaid [facility] [id number] Medicare A [id number] Medicare B [id number] Medicaid [facility] [id number] Social History Type Description Quantity Date Captured Comments Alcohol Use Details Unknown Caffeine Use Details Unknown Tobacco Use Status Unknown Smoking Status Unknown Vital Signs Date / Height Weight BMI Pulse Blood Temperature Respiratory Body Head BMI Time: Rate Pressure Rate Surface Circumference percentile Area Unknown Chief Complaint And Reason For Visit No information Reason For Referral Reason For Referral Unknown Plan Of Care Date Type Action Status Referral Ordered: ordered US/abdominal, limited (eg. single organ, quadrant, f/u) Right abdomen Referral Ordered: ordered Xray Spine Cervical complete w/flex & ext Bilateral Referral Ordered: ordered *EKG Complete Referral Ordered: ordered Nuclear Scan Myocardial Perfusion Rest and Stress (must specify Treadmilll /pio Appointment date/timeframe: 08/12/2017 Referral Ordered: ordered Echocardiography With Color Flow Appointment date/timeframe: 08/12/2017 Referral Ordered: ordered Referrals: Cardiology. Location: [facility] Cardiology. Evaluate and treat Appointment date/timeframe: 2 Weeks Referral Ordered: ordered Xray Shoulder Complete (Must choose side) Left Referral Referred To: ordered BRITTNEY HARRIS [address] [place], [address] [phone] Ordered: BRITTNEY HARRIS. Podiatry. Consult and treat. Appointment date/timeframe: 08/10/2015 Referral Referred To: ordered RONY GALAN [address] [place], [address] [phone] Ordered: RONY GALAN. Ophthalmology. Consult and treat. Referral Ordered: ordered Xray Knee complete (Must choose side) Referral Referred To: ordered SONNY Brown Johnson [address] [place], [address] [phone] Ordered: SONNY Brown. Ortho Surg. Consult. Appointment date/timeframe: 02/16/2013 Referral Ordered: ordered Xray Shoulder Complete (Must choose side) Bilateral shoulder Referral Ordered: ordered Xray Knee complete (Must choose side) Right knee Referral Ordered: ordered Xray Spine Lumbar complete w/bending Referral Ordered: ordered Xray Knees bilateral standing AP Referral Ordered: ordered Xray Knee limited 3 view (Must choose side) Right knee Referral Ordered: ordered Xray Hips bilateral w/Pelvis Referral Ordered: ordered Xray Spine Cervical Referral Referred To: ordered Iota Tatum out patient PT. Ordered: Iota Tatum out patient PT.. Physical Therapy. Consult and treat. Appointment date/timeframe: 2 Weeks Referral Ordered: ordered Xray Shoulder Complete (Must choose side) Left shoulder Referral Ordered: ordered . Gastroenterology. Consult and treat. Appointment date/timeframe: 01/17/2010 Appointment [facility], CAD[facility] Date Type Problem Goal Intervention Status Start Date Unknown History Of Present Illness Encounter Date Complaint History Of Present Illness No information Functional Status Encounter Date Functional Assessment Cognitive Assessment Unknown Medications Administered Medication Instructions Dosage Effective Dates (start - stop) Status Comments Drug Treatment Unknown Instructions Date Instruction Additional Information Will test for possible causes of Related to Elevated liver enzymes liver injury. Will stop the lisinopril to be sure Related to Essential (primary ) it is not the cause of elevated hypertension liver enzymes. Start diovan instead. Follow up in two weeks. Inwill order an ultrasound of the Related to History of fatty liver. infiltration of liver Use the cicloprox cream on the Related to Tinea pedis of right foot space between the toes of both feet. Due to the local incidense of lyme, Related to Fasciculation it warrants testing .Will also test for celiac as it runs in the family , Will check some general markersfor inflammatory illness. Continue to rest, stay warm and Related to Viral URI drink plenty of fluids. Apply heat to the area for 10 Related to Nose pain minutes at time. Requests follow up with Related to Status post total Mcnamara. Given the number to that replacement of both hips office. Drink plenty of fluids, rest and Related to Viral respiratory stay warm. infection Use the cicloprox cream . Over the Related to Tinea pedis of right foot counter treatments include tolnaftate cream, Terbinafine cream or clotrimazole cream. Try to keep the feet and shoes dry. use clean socks every day. He will get the records of his care Related to Chronic left shoulder pain at [facility] released to this office. He will return another day to have Related to Digital mucinous cyst of this aspirated and methylprednisone finger of right hand . Will get an x-ray of the neck.. DO Related to Neck pain the exercises in the hand out. Take ibuprofen whenthe pain is bad. As the symptoms are improved and Related to Urinary frequency urinalysis was negative. I would wait ans watch.. Advised this to have the lump Related to Lesion of mandible examined by a dentist. pt will continue to drink plenty of Related to Urinary frequency water, no caffiene and call for further needs or concerns or if any fever develops. Keep the skin clean. use Related to Angular cheilitis clotrimazole Drink plenty of fluids. start the Related to Flu syndrome oseltamivir. will take another 4 days of Related to Acute non-recurrent amoxicillin ,1000mg twice daily. sinusitis, unspecified location Use the TSERING bandage. Keep the ankle Related to Acute right ankle pain warm . Avoid over use . Call if the pain worsens. Drink plenty of fluids . Start the Related to Acute non-recurrent amoxicillin 500mg twice a day. sinusitis, unspecified location Will have an x-ray done of the left Related to Chronic left shoulder pain shoulder. start cromolyn eye drops Related to Allergic conjunctivitis of both eyes Start aspirin , 81mg once daily. Related to Precordial pain May take nitroglycerin if the chest pain returns . If the pain returns and does not go away with nitroglycerin, go to the ED. I will refer to cardiology for further evaluation. Will continue blood pressure at the Related to Essential (primary ) current dose. hypertension Decrease the lisinopril HCTZ to Related to Essential (primary) once daily. hypertension wound is healing well. Sutures are Related to Laceration of oral cavity, absorbable . call if there is an subsequent encounter increase in pain, redness or swelling. Call if the right eye becomes more Related to Abrasion of right eye, red, paiful or discharge developes. initial encounter Drink plenty of fluids, rest , stay Related to Viral respiratory warm. Use the guaifenesin syrup up infection to every four hour. Call if you are not improving by next week. Try backing off on the barbeque Related to Urinary frequency sauce for several day. Continue to use the voltaren gel Related to Acromioclavicular joint arthritis I recommend restarting the Related to Essential (primary) lisinopril HCTz.Weight,207 lb hypertension Drink plenty of fluids, rest and Related to Viral URI stay warm. Call if Symptoms have not improved by next week. Drink plenty of fluids, rest and Related to Viral URI stay warm. Laboratory testing suggests that Related to History of hepatitis C CAdet never had hepatitis C. LEtter written to this effect. It may be helpful to use salt water Related to Abrasion of gum, initial rinses four times a day. encounter We will test for hepatits C Related to History of hepatitis C antibody./ Will attempt top calll Dandre Related to Family history of Vidhya , his still operator about the hemophilia request for testing. I will order the test if Suhail Related to Genetic counseling would like, onc he determines what he wants. After the current infection resolves Related to Other fatigue we will check labs , including B12, thyroid, cbc. Will start tamiflu Related to Flu syndrome continue lisinopril HCTZ 20-12.5 Related to Essential (primary) hypertension Mainy continue the use of voltaren Related to Right hip pain gell. Start azithromycin, rest, drink Related to Acute sinusitis, plenty of fluids. unspecified continue ronald lisinopril Related to Essential (primary) hydrochlorthiazide. hypertension Will see the sonography technologist in the Related to Pain in unspecified ankle beginning of October and joints of unspecified foot Take two of the lisinopril-HCTz each Related to Essential ( primary) day. follwo up in one month. hypertension Continue the lisinopril Related to Essential (primary) hydrochlorthiazide. Avoid high hypertension salt foods. Blood sugars are OK at present. Related to Other abnormal glucose Avoid gaining weight find exercises that you can do regularly. Will check ferritin and ceruloplasm. Related to Elevated ALT level Will recheck Related to Elevated blood sugar Will recheck blood sugar Related to Impaired vision Continue the lisinopril. Follow up Related to Hypertension, Benign in two weeks. Stop the present medication and Related to Hypertension, Benign start lisinopril hydrochlorthiazide. Will check a hemoglobin A1c Related to Elevated Blood Sugar Try using anheel cushin until you Related to Foot Pain are able to see the sonography technologist. Will change BP medication to Related to Hypertension, Benign lisinopril, 20mg once daily Use heat on the affected hip. Related to Hip pain, left Stretch gently as demonstrated. Use a supportive shoe. avoid Related to Heel pain climbing stairs. keep the foot warm. Start chlorthalidone. Related to Hypertension, Benign We will continue to monitor. Related to Elevated blood pressure Use heat on the elbow for 20 minutes Related to Epicondylitis at a time. use an elastic strap on the right forearm. Follow the instructions in the [employer] handout. No evidence of recurrence. we will Related to Hepatitis C, chronic immunize against HepatitisA and B. viral, w/o hepatic coma Will continue to treat residual pain Related to Osteoarthritis with hydrocodone at the time of worst exacerbations. Will use the Hydrocodone PRN. Related to Status post hip prosthesis Follow up with Urology. Related to Priapism
[2019-12-22 21:04] VITALS: BP 155/101
--- NOTE | 2019-12-22 21:11 | UC ---
Eye Complaint HPI - HPI Summary HPI Summary: Less than one day of L eye feeling 'weird', and having crusties'. no sick contacts - History of Current Complaint Chief Complaint: UCEye Stated Complaint: EYE PAIN Time Seen by Provider: 12/22/19 21:08 Hx Obtained From: Patient Pain Intensity: 3 Pain Scale Used: 0-10 Numeric Aggravating Factor(s): Blinking Alleviating Factor(s): Nothing - Allergies/Home Medications Allergies/Adverse Reactions: Allergies Allergy/AdvReac Type Severity Reaction Status Date / Time No Known Allergies Allergy Verified 12/22/19 21:04 Home Medications: Home Medications Aspirin 1 dose PO DAILY 11/15/19 [History Confirmed 12/22/19] Multivitamin [Multivitamins] 1 tab PO DAILY 11/15/19 [History Confirmed 12/22/19 ] Valsartan 1 tab PO DAILY 11/15/19 [History Confirmed 11/15/19] Vitamin For Bones 1 tab PO DAILY 11/15/19 [History Confirmed 12/22/19] Erythromycin OPTH OINT* [Erythromycin 0.5% OPTH OINT*] 1 applic LEFT EYE TID 7 Days #1 ophth.oint 12/22/19 [Rx] PMH/Surg Hx/FS Hx/Imm Hx Previously Healthy: Yes Cardiovascular History: Hypertension - Surgical History Surgical History: Yes Surgery Procedure, Year, and Place: bilateral hip replacement, renal abscess - Family History Known Family History: Positive: Non-Contributory - Social History Alcohol Use: Occasionally Substance Use Type: None Smoking Status (MU): Never Smoked Tobacco Review of Systems All Other Systems Reviewed And Are Negative: Yes Constitutional: Negative: Fever Eyes: Positive: Drainage - L eye. Negative: Blurred Vision, Eye Redness, Photophobia Physical Exam Triage Information Reviewed: Yes Completion Of Physical Exam Limited Due To: Other - unclear of mental capacity Appearance: Well-Appearing, Other: - smells like URINE Vital Signs: Initial Vital Signs Temp 98.6 F 12/22/19 20:58 Pulse 75 12/22/19 20:58 Resp 16 12/22/19 20:58 BP 155/101 12/22/19 20:58 Pulse Ox 100 12/22/19 20:58 Vital Signs Reviewed: Yes Eyes: Positive: Conjunctiva Clear. Negative: Discharge, Other: - L eye lids unremarkable. no pain w/ eye movement. PERRLA Eye Complaint Course/Dx - Course Course Of Treatment: L eye crusting per pt., less than one day. On exam no obvious signs of infxn but will tx empirically. I was unclear of pt's mental capacity or level of intelligence but he communicated well. bp will disc w/ his pcp. - Differential Dx/Diagnosis Differential Diagnosis/HQI/PQRI: Corneal Abrasion, Orbital Cellulitis, Other Provider Diagnosis: Discomfort of left eye Discharge ED - Sign-Out/Discharge Documenting (check all that apply): Patient Departure All imaging exams completed and their final reports reviewed: No Studies - Discharge Plan Condition: Good Disposition: HOME Prescriptions: Erythromycin OPTH OINT* [Erythromycin 0.5% OPTH OINT*] 1 applic LEFT EYE TID 7 Days #1 ophth.oint Patient Education Materials: Eye Pain (ED) Referrals: Archie Laguna MD [Primary Care Provider] - Additional Instructions: Please consider reviewing your blood pressure with your primary care. - Billing Disposition and Condition Condition: GOOD Disposition: Home
== END 2019-12-22 21:35 | disposition home or self-care (01) ==
LOC: UCEAST 20:33
DX: H57.89 Other specified disorders of eye and adnexa (principal); I10 Essential (primary) hypertension; Z79.82 Long term (current) use of aspirin; Z79.899 Other long term (current) drug therapy
CPT/HCPCS: 99212; G0463